=== PATIENT | female | born 1975 | race Caucasian/White ===

== ENCOUNTER 2021-02-05 07:30 | Emergency (ER) | payer MEDICAID ==
[~2021-02-05] VITALS: Ht 167.6 cm; Wt 65.8 kg
[2021-02-05 07:35] VITALS: BP 191/126
[2021-02-05] MEDS ORDERED: ONDANSETRON 4 MG/2 ML VIAL IVP ONE (07:45)
[2021-02-05] MEDS ORDERED: LORazepam 2 MG/ML VIAL IVP ONE (07:45)
[2021-02-05] MEDS ORDERED: MULTIVITAMIN 1 TAB PO ONE (07:45)
[2021-02-05] MEDS ORDERED: NACL 0.9% 1,000 ML IV SCH (07:45)
[2021-02-05] MEDS ORDERED: FOLIC ACID 1 MG TAB PO ONE (07:45)
[2021-02-05] MEDS ORDERED: HYDROcodone/APAP 5/325 MG 1 TAB TAB PO ONE (07:45)
[2021-02-05] MEDS ORDERED: THIAMINE 200 MG/2 ML VIAL IM ONE (07:45)
--- NOTE | 2021-02-05 08:02 | NUR ---
LABS WALKED TO LAB.
--- NOTE | 2021-02-05 08:27 | NUR ---
33/F biba from home with c/o 12/03 sharp RLQ, LLQ radiating to lower back pain since yesterday. Patient states "I think I have a bladder infection", reports dysuria, denies hematuria. Patient reports hx of alcohol abuse and states she was sober for 11 years but relapsed a few months ago, reporting intermittent episodes of tremors and states "I am scared I'm going to have a seizure," states her last drink was 24 hours ago. Patient reports 3 episodes of vomiting and diarrhea since this morning. Patient denies any fever/chills, denies chest pain, sob.
[2021-02-05 09:20] LABS: BASOPHILS # (AUTO) 0.1 K/uL (0.00-0.22); BASOPHILS % (AUTO) 1.3 % (0.0-2.0); EOSINOPHILS # (AUTO) 0.1 K/uL (0-0.4); EOSINOPHILS % (AUTO) 0.8 % (0.0-4.0); HEMATOCRIT 32.2 % (36-48); HEMOGLOBIN 10.1 g/dL (12.0-16.0); LYMPHOCYTES # (AUTO) 2.6 K/uL (2.5-16.5); LYMPHOCYTES % (AUTO) 30.9 % (20.5-51.1); MEAN CORPUSCULAR HEMOGLOBIN 24 pg (27-31); MEAN CORPUSCULAR HGB CONC 31 g/dL (33-37); MEAN CORPUSCULAR VOLUME 77.2 fL (80-94); MONOCYTES # (AUTO) 0.6 K/uL (0.8-1.0); MONOCYTES % (AUTO) 6.8 % (1.7-9.3); NEUTROPHILS % (AUTO) 60.2 % (42.2-75.2); PLATELET COUNT (AUTO) 292 K/uL (140-450); RED BLOOD CELL COUNT(AUTO) 4.17 MIL/uL (4.20-5.40); WHITE BLOOD COUNT (AUTO) 8.3 K/uL (4.8-10.8)
[2021-02-05 09:27] LABS: ALBUMIN 2.9 g/dL (3.4-5.0); ANION GAP 10.1 (8-16); CARBON DIOXIDE 28.2 mmol/L (21-32); CREATININE 0.9 mg/dL (0.6-1.3); MAGNESIUM 1.8 mg/dL (1.8-2.4); PHOSPHORUS 2.8 mg/dL (2.5-4.9); POTASSIUM 3.3 mmol/L (3.5-5.1); TOTAL BILIRUBIN 0.6 mg/dL (0.0-1.0)
--- NOTE | 2021-02-05 10:00 | NUR ---
PATIENT RESTING WITH EYES CLOSED, RESPIRATIONS EVEN AND UNLABORED. ON BEDSIDE STONE FINISHER. WILL CONTINUE TO MONITOR.
--- NOTE | 2021-02-05 12:15 | NUR ---
Patient ambulated with steady to the restroom to provide urine sample.
--- NOTE | 2021-02-05 13:00 | NUR ---
PATIENT RESTING WITH EYES CLOSED, RESPIRATIONS EVEN AND UNLABORED. ON BEDSIDE CRAYON SORTING MACHINE FEEDER. WILL CONTINUE TO MONITOR.
[2021-02-05 13:50] LABS: BILIRUBIN,URINE NEGATIVE (NEGATIVE); BLOOD, URINE NEGATIVE (NEGATIVE); COLOR,URINE YELLOW (YELLOW); LEUKOCYTE ESTERASE ,URINE 3+ (NEGATIVE); NITRITE, URINE NEGATIVE (NEGATIVE); PH,URINE 6.5 (5.0-9.0); UGLUCOSE NEGATIVE (NEGATIVE)
[2021-02-05 13:52] LABS: APPEARANCE,URINE HAZY (CLEAR)
[2021-02-05 14:00] LABS: RBC,URINE NONE SEEN /HPF (0-5)
[2021-02-05 14:01] LABS: URINE AMORPHOUS URATE 1+ /HPF (None Seen)
[2021-02-05] MEDS ORDERED: chlordiazePOXIDE 25 MG CAP PO ONE (14:15)
[2021-02-05] MEDS ORDERED: ONDA-24 PO (15:12)
[2021-02-05] MEDS ORDERED: CIPR500T4 PO (15:12)
[2021-02-05] MEDS ORDERED: METR500T1 PO (15:12)
[2021-02-05] MEDS ORDERED: LIB25 PO (15:12)
[2021-02-05 15:29] VITALS: BP 159/101
--- NOTE | 2021-02-05 15:29 | NUR ---
Patient discharged with v/s stable. Written and verbal after care instructions given and explained. Patient alert, oriented and verbalized understanding of instructions. Ambulatory with steady gait. All questions addressed prior to discharge. ID band removed. Patient advised to follow up with PMD. Rx of Cipro, Librium, Flagyl and Zofran given. Patient educated on indication of medication including possible reaction and side effects. Opportunity to ask questions provided and answered. Patient offered food and bus pass upon d/c.
== END 2021-02-05 15:29 | disposition home or self-care (01) ==
LOC: MED 07:30
DX: F10.10 Alcohol abuse, uncomplicated (principal); K52.9 Noninfective gastroenteritis and colitis, unspecified; N39.0 Urinary tract infection, site not specified; I12.9 Hypertensive chronic kidney disease with stage 1 through stage 4 chronic kidney disease, or unspecified chronic kidney disease; N18.9 Chronic kidney disease, unspecified
CPT/HCPCS: 36415; 70450; 74176; 80053; 81001; 81025; 83690; 83735; 84100; 84703; 85025; 87086; 96361; 96372; 96374; 96375; 99285; J2405; J3411; J7030; J2060

== ENCOUNTER 2022-12-28 21:40 | Inpatient (IN) | payer MEDICAID ==
[~2022-12-28] VITALS: Ht 167.6 cm; Wt 68.0 kg
[2022-12-28 21:40] VITALS: BP 161/90; PULSE 101; RESP 18; TEMP 98; O2SAT 97
[~2022-12-28 21:40] MED LIST: ACET-10509 PO; ACET-5629 PO; AMLO10TA PO; CIPR500T4 PO; FLUO40CA6 PO; IBUP-2213 PO; LIB25 PO; LISI40TA12 PO; METR500T1 PO; ONDA-188 PO
--- NOTE | 2022-12-28 21:47 | NUR ---
Alberto dixon in [facility] - 12/28/22 at 2149 by SAL PT BIBA ER BED 2
--- NOTE | 2022-12-28 21:49 | NUR ---
PT LEANNE MATHEWS, OFFLOADED TO ER LOBBY VIA EMS
--- NOTE | 2022-12-28 22:15 | NUR ---
PT BIB WC TO BED 11, CALL LIGHT W/IN REACH.
--- NOTE | 2022-12-28 22:20 | NUR ---
RECEIVED IN BED 11 AFTER BEING BIBA FROM STREETS WITH C/O ABDOMINAL PAIN. PT WITH H/O ETOH
[2022-12-28] MEDS ORDERED: ONDANSETRON 4 MG/2 ML VIAL IVP ONE (22:45)
[2022-12-28] MEDS ORDERED: MORPHINE SULFATE 4 MG/ML SYR IVP ONE (22:45)
[2022-12-28] MEDS ORDERED: NACL 0.9% 1,000 ML IV ONE (22:45)
--- NOTE | 2022-12-28 23:10 | NUR ---
PT WITH POOR VENOUS ACCESS, LABS WERE DRAWN
--- NOTE | 2022-12-28 23:15 | NUR ---
AMBULATED TO BR WITH STEADY GAIT
[2022-12-28 23:25] LABS: BASOPHILS # (AUTO) 0.1 K/uL (0.00-0.22); BASOPHILS % (AUTO) 0.5 % (0.0-2.0); EOSINOPHILS % (AUTO) 0.1 % (0.0-4.0); HEMATOCRIT 30.6 % (36-48); HEMOGLOBIN 9.9 g/dL (12.0-16.0); LYMPHOCYTES # (AUTO) 1.2 K/uL (2.5-16.5); LYMPHOCYTES % (AUTO) 6.3 % (20.5-51.1); MEAN CORPUSCULAR HEMOGLOBIN 28 pg (27-31); MEAN CORPUSCULAR HGB CONC 32 g/dL (33-37); MEAN CORPUSCULAR VOLUME 86.6 fL (80-94); MONOCYTES # (AUTO) 1.1 K/uL (0.8-1.0); MONOCYTES % (AUTO) 5.4 % (1.7-9.3); NEUTROPHILS # (AUTO) 17.2 K/uL (1.8-7.7); PLATELET COUNT (AUTO) 217 K/uL (140-450); RED BLOOD CELL COUNT(AUTO) 3.53 MIL/uL (4.20-5.40); RED CELL DISTRIBUTION WIDTH 20.7 % (11.6-13.7); WHITE BLOOD COUNT (AUTO) 19.6 K/uL (4.8-10.8)
--- NOTE | 2022-12-28 23:37 | NUR ---
AMBULATED TO BR WITH STEADTY GAIT
[2022-12-28 23:48] LABS: ALBUMIN 1.9 g/dL (3.4-5.0); ANION GAP 13.3 (8-16); CARBON DIOXIDE 22.6 mmol/L (21-32); CREATININE 1.1 mg/dL (0.6-1.3); MAGNESIUM 1.8 mg/dL (1.8-2.4); PHOSPHORUS 2.4 mg/dL (2.5-4.9); TOTAL BILIRUBIN 0.7 mg/dL (0.0-1.0)
[2022-12-28 23:50] LABS: NEUTROPHILS % (AUTO) 87.7 % (42.2-75.2)
[2022-12-29] LABS: POTASSIUM 2.9 mmol/L (3.5-5.1)
[2022-12-29] MEDS ORDERED: SODIUM PHOS / POTASSIUM PHOS 1 PKT PDR PO ONE (00:05)
[2022-12-29] MEDS ORDERED: POTASSIUM CHLORIDE 10 MEQ TABER PO ONE (00:05)
--- NOTE | 2022-12-29 00:15 | NUR ---
TO CT VIA W/C
--- NOTE | 2022-12-29 00:21 | NUR ---
RETURNED FROM CT
--- NOTE | 2022-12-29 01:15 | NUR ---
AMBULATED TO BR, UA OBTAINED AND SENT TO LAB
[2022-12-29 01:50] LABS: BILIRUBIN,URINE NEGATIVE (NEGATIVE); BLOOD, URINE 3+ (NEGATIVE); COLOR,URINE YELLOW (YELLOW); LEUKOCYTE ESTERASE ,URINE 3+ (NEGATIVE); NITRITE, URINE POSITIVE (NEGATIVE); PH,URINE 6.5 (5.0-9.0); UGLUCOSE NEGATIVE (NEGATIVE)
[2022-12-29 02:22] LABS: APPEARANCE,URINE HAZY (CLEAR)
[2022-12-29 02:24] LABS: RBC,URINE 0-5 /HPF (0-5)
[2022-12-29] MEDS ORDERED: cefTRIAXone 1,000 MG VIAL ONE (02:57)
--- NOTE | 2022-12-29 04:16 | NUR ---
AMBULATED TO BR WITH STEADY GAIT
--- NOTE | 2022-12-29 05:08 | NUR ---
AWAKE, DRINKING WATER, TOLERATING WELL
--- NOTE | 2022-12-29 05:09 | NUR ---
AWAKE AMBULATED TO BR
[2022-12-29] MEDS ORDERED: CEPH-588 PO (05:43)
[2022-12-29] MEDS ORDERED: ONDA-188 SL (05:43)
--- NOTE | 2022-12-29 07:25 | NUR ---
REPORT RECEIVED FROM FIDELINA CARLISLE. ASSUMED CARE AT THIS TIME
--- NOTE | 2022-12-29 07:35 | NUR ---
pt at rest w/ eyes closed. respirations even and unlabored. bed at lowest position, bed rails upx2. call light within reach
[2022-12-29 07:45] VITALS: O2SAT 97
[2022-12-29] MEDS ORDERED: NACL 0.9% 1,000 ML IV ONE ×2 (08:40→08:45)
[2022-12-29] MEDS ORDERED: LISI40TA8 PO (08:42)
--- NOTE | 2022-12-29 10:16 | NUR ---
pt w/ new pain onset. ERMD MADE AWARE
[2022-12-29] MEDS ORDERED: MORPHINE SULFATE 4 MG/ML SYR IVP ONE (10:25)
[2022-12-29] MEDS: NACL 0.9% 1,000 ML IV SCH ×2 (11:12→18:54)
[2022-12-29] MEDS ORDERED: KCL 20 MEQ IN 100 mL PREMIX 200 ML IV SCH (11:15)
--- NOTE | 2022-12-29 11:17 | NUR ---
Patient will be admitted to care of MD ALONSO. Admited to TELE. Will go to room 112A. Belongings list completed. Report to VANI LUNA.
--- NOTE | 2022-12-29 11:45 | NUR ---
RECEIVE ENDORSEMENT REPORT FORM ER NURSE, REMBERTO, THAT 47 YR OLD HOMELESS, FEMALE PATIENT IS ADMITTING FOR SEPSIS 2/2 PYELONEPHRITIS WITH SYMPTOM OF MILD TO MODERATE ABDOMINAL PAIN W/ NAUSEA/VOMITING, DIARRHEA & BILATERAL LOWER EXTREMITIES WEAKNESS. PATIENT HAS HX OF HEP. C, L. HIP ORIF, BIPOLAR, HTN, AND ETOH ABUSE; NKA, AMBULATORY, ALERT X 3, ON TEL. MONITOR, ROOM AIR. ON REGULAR DIET. PIV WAS AT [facility] (THEN PATIENT PULL IT OUT BECAUSE POTASSIUM MAKES HER FINGER LOSE FEELING) AND NURSE START A NEW ONE AT L. FOREARM. 22G. SKIN INTACT. WILL CONTINUE TO MONITOR. Addendum: 12/29/22 at 1756 by Ashlie Soliman RN PER ER NURSE THAT PATIENT HAD 2 LITER BOLUS NS, ROCEPHIN, & 40 MEQ K-DUR GIVE IN ER IN ADDITION TO FEW DOSE MORPHINE. [facility] NURSE GIVE 40MEQ K-RIDER AFTER PATIENT ARRIVE [facility]. PATIENT'S LATEST LACTIC ACID =1.6; WILL CONTINUE TO MONITOR Addendum: 12/29/22 at 1852 by Ashlie Soliman RN PATIENT IS ABLE TO AMBULATORY WITH STEADY GAIT; USING BOTH BEDSIDE COMMODE AND BATHROOM. PATIENT IS CURRENT SMOKER, ETOH HEAVY USER, AND USING RECREATIONAL DRUG OCCASIONALLY, PER PATIENT SELF REPORT SHE "NEEDS HELP." WILL CONTINUE TO MONITOR
[2022-12-29 12:00] VITALS: BP 169/108; PULSE 102; PULSE 106; RESP 20; TEMP 99; O2SAT 98
[2022-12-29 15:15] LABS: BARBITURATE, URINE NEGATIVE ng/ml (NEG <=200); BENZODIAZEPINE, URINE POSITIVE ng/mL (NEG <=200); CANNABINOID, URINE NEGATIVE ng/mL (NEG <=50); COCAINE, URINE NEGATIVE ng/mL (NEG <=300); OPIATE, URINE POSITIVE ng/mL (NEG <=2000); PHENCYCLIDINE SCREEN,URINE NEGATIVE ng/mL (NEG <=25)
[2022-12-29 15:24] VITALS: RESP 18; O2SAT 98
[2022-12-29 16:00] VITALS: BP 149/95; PULSE 117; PULSE 89; RESP 18; TEMP 96.8; O2SAT 96
[2022-12-29] MEDS: LEVOFLOXACIN 750 MG/D5W PREMIX 150 ML IV SCH (18:29)
[2022-12-29] MEDS ORDERED: DOCUSATE SODIUM 100 MG GELCAP PO PRN (18:35)
[2022-12-29] MEDS ORDERED: ACETAMINOPHEN 325 MG TAB PO PRN (18:35)
[2022-12-29] MEDS ORDERED: POTASSIUM CHLORIDE 10 MEQ TABER PO PRN (18:35)
[2022-12-29] MEDS ORDERED: ONDANSETRON 4 MG/2 ML VIAL IVP PRN (18:35)
--- NOTE | 2022-12-29 19:30 | NUR ---
RECEIVED PT FROM AM NURSE FOR CONTINUITY OF CARE. PT IS STABLE
[2022-12-29 20:00] VITALS: BP 182/99; PULSE 92; PULSE 93; RESP 18; TEMP 97.9; O2SAT 97
--- NOTE | 2022-12-29 20:40 | NUR ---
NOTIFIED OF PATIENT'S BP 182/99. GAVE AN ORDER HYDRALAZINE 10 MG PO Q6HR PRN. NOTED AND CARRIED OUT
[2022-12-29] MEDS: MORPHINE SULFATE 2 MG/ML SYR IVP PRN (21:04)
[2022-12-29] MEDS: hydrALAZINE 10 MG TAB PO PRN (21:56)
[2022-12-30] VITALS: BP 156/85; PULSE 112; PULSE 97; RESP 18; TEMP 98.1; O2SAT 98
[2022-12-30] MEDS: NACL 0.9% 1,000 ML IV SCH ×3 (02:41→19:28)
[2022-12-30] MEDS: MORPHINE SULFATE 2 MG/ML SYR IVP PRN ×4 (02:57→19:51)
[2022-12-30 04:00] VITALS: BP 150/98; PULSE 121; PULSE 95; RESP 18; TEMP 97.6; O2SAT 98
[2022-12-30 06:22] LABS: BASOPHILS % (AUTO) 0.4 % (0.0-2.0); EOSINOPHILS # (AUTO) 0.1 K/uL (0-0.4); EOSINOPHILS % (AUTO) 0.9 % (0.0-4.0); HEMATOCRIT 27.7 % (36-48); LYMPHOCYTES # (AUTO) 1.2 K/uL (2.5-16.5); LYMPHOCYTES % (AUTO) 12.3 % (20.5-51.1); MEAN CORPUSCULAR HEMOGLOBIN 29 pg (27-31); MEAN CORPUSCULAR HGB CONC 33 g/dL (33-37); MONOCYTES # (AUTO) 0.7 K/uL (0.8-1.0); MONOCYTES % (AUTO) 7.7 % (1.7-9.3); NEUTROPHILS # (AUTO) 7.5 K/uL (1.8-7.7); NEUTROPHILS % (AUTO) 78.7 % (42.2-75.2); PLATELET COUNT (AUTO) 165 K/uL (140-450); RED BLOOD CELL COUNT(AUTO) 3.14 MIL/uL (4.20-5.40); WHITE BLOOD COUNT (AUTO) 9.6 K/uL (4.8-10.8)
[2022-12-30 06:44] LABS: ANION GAP 12.6 (8-16); CARBON DIOXIDE 21.7 mmol/L (21-32); POTASSIUM 3.3 mmol/L (3.5-5.1)
--- NOTE | 2022-12-30 07:18 | NUR ---
ENDORSED PT TO AM NURSE FOR CONTINUITY OF CARE. PT IS STABLE
[2022-12-30 08:00] VITALS: BP 161/103; PULSE 87; PULSE 98; RESP 18; TEMP 98.8; O2SAT 99
[2022-12-30] MEDS: hydrALAZINE 10 MG TAB PO PRN ×4 (09:05→22:27)
--- NOTE | 2022-12-30 09:07 | NUR ---
PATIENT HAS BEEN SCREENED AND CATEGORIZED LOW NUTRITION RISK. PATIENT WILL BE SEEN WITHIN 7 DAYS OF ADMISSION. 12/29/22-01/05/[address]
[2022-12-30] MEDS: MAG SULF 2000 MG/WATER PREMIX 50 ML IV PRN (09:10)
[2022-12-30 12:00] VITALS: BP 175/107; PULSE 77; PULSE 88; RESP 18; TEMP 98.6; O2SAT 98
[2022-12-30 16:00] VITALS: BP 163/108; PULSE 88; PULSE 92; RESP 18; TEMP 98.4; O2SAT 98
[2022-12-30] MEDS: LEVOFLOXACIN 750 MG/D5W PREMIX 150 ML IV SCH (17:45)
--- NOTE | 2022-12-30 19:30 | NUR ---
RECEIVED PT FROM AM NURSE FOR CONTINUITY OF CARE. PT IS STABLE
[2022-12-30 20:00] VITALS: BP 170/100; PULSE 78; PULSE 86; RESP 18; TEMP 97.7; O2SAT 96
[2022-12-31] VITALS: PULSE 95
--- NOTE | 2022-12-31 02:00 | NUR ---
PATIENT ASLEEP, NO DISTRESS NOTED
[2022-12-31] MEDS: NACL 0.9% 1,000 ML IV SCH ×2 (02:57→10:47)
[2022-12-31] MEDS: MORPHINE SULFATE 2 MG/ML SYR IVP PRN (03:52)
[2022-12-31 04:00] VITALS: BP 164/90; PULSE 80; PULSE 85; RESP 18; TEMP 97.6; O2SAT 97
[2022-12-31] MEDS: hydrALAZINE 10 MG TAB PO PRN (05:01)
[2022-12-31 06:31] LABS: ANION GAP 9.3 (8-16); CARBON DIOXIDE 24.2 mmol/L (21-32); POTASSIUM 3.5 mmol/L (3.5-5.1)
[2022-12-31 06:35] LABS: BASOPHILS # (AUTO) 0.1 K/uL (0.00-0.22); EOSINOPHILS # (AUTO) 0.1 K/uL (0-0.4); EOSINOPHILS % (AUTO) 1.3 % (0.0-4.0); HEMATOCRIT 29.7 % (36-48); HEMOGLOBIN 9.5 g/dL (12.0-16.0); LYMPHOCYTES # (AUTO) 1.2 K/uL (2.5-16.5); MEAN CORPUSCULAR HEMOGLOBIN 28 pg (27-31); MEAN CORPUSCULAR HGB CONC 32 g/dL (33-37); MEAN CORPUSCULAR VOLUME 88.5 fL (80-94); MONOCYTES # (AUTO) 0.7 K/uL (0.8-1.0); NEUTROPHILS # (AUTO) 6.1 K/uL (1.8-7.7); NEUTROPHILS % (AUTO) 74.7 % (42.2-75.2); PLATELET COUNT (AUTO) 183 K/uL (140-450); RED BLOOD CELL COUNT(AUTO) 3.35 MIL/uL (4.20-5.40); WHITE BLOOD COUNT (AUTO) 8.2 K/uL (4.8-10.8)
[2022-12-31] MEDS: MAG SULF 2000 MG/WATER PREMIX 50 ML IV PRN (06:54)
--- NOTE | 2022-12-31 07:18 | NUR ---
ENDORSED PT TO AM NURSE FOR CONTINUITY OF CARE. PT IS STABLE
[2022-12-31 08:00] VITALS: BP 153/103; PULSE 71; PULSE 72; RESP 17; TEMP 98; O2SAT 97
[2022-12-31] MEDS ORDERED: FLUoxetine 20 MG CAP PO SCH (09:00)
[2022-12-31] MEDS ORDERED: lisinopriL 20 MG TAB PO SCH (09:00)
[2022-12-31] MEDS: METOPROLOL 25 MG TAB PO SCH ×2 (09:38→13:27)
[2022-12-31] MEDS ORDERED: METO25TA PO (10:56)
[2022-12-31] MEDS ORDERED: LEVO750T75 PO (10:57)
[2022-12-31 11:10] VITALS: BP 153/103; PULSE 72; RESP 17; TEMP 98
[2022-12-31 12:50] VITALS: BP 143/92; PULSE 66; RESP 17; TEMP 98.1; O2SAT 99
--- NOTE | 2022-12-31 13:34 | NUR ---
DISCHARGE PATIENT IN STABLE CONDITION PER PCP ORDER AFTER DISCHARGE INSTRUCTION GIVE, DISCHARGE CONSENT SIGN, IV ACCESS, TEL. MONITOR, & WRIST BAND REMOVED. PATIENT WENT HOME VIS UBER SERVICE PER PATIENT PREFERENCE.
--- NOTE | 2022-12-31 13:36 | NUR ---
HOOF TRIMMER introduced self to homeless pt. who was preparing for her discharge. During the Discharge Planning Assessment, pt. was not interested in all the questions stating she was getting discharged, but welcomed resources such as a change of clothing, gave an address for an Uber ride to the welfare office on [address] When HOOF TRIMMER attempted to provide pt. with resources for homelessness, counseling, clothing, and food hwang, pt declined stating she has packets of the same thing. When asked, pt. stated there was no friends or family that could assist pt with her homeless status. HOOF TRIMMER called security for clothing, shared with the Alvin Dailey the address for the Uber and requested a sack lunch.
== END 2022-12-31 13:30 | disposition home or self-care (01) | DRG 720 ==
LOC: MED 21:40 → MTU 12-29 11:02
PROVIDERS: ADMIT Family Medicine; ATTEND Family Medicine
DX: A41.9 Sepsis, unspecified organism (principal); E43 Unspecified severe protein-calorie malnutrition; N10 Acute pyelonephritis; B19.20 Unspecified viral hepatitis C without hepatic coma; E83.42 Hypomagnesemia; F31.9 Bipolar disorder, unspecified; K52.9 Noninfective gastroenteritis and colitis, unspecified; E87.6 Hypokalemia; I10 Essential (primary) hypertension; D64.9 Anemia, unspecified; Z59.00 Homelessness unspecified; Z68.24 Body mass index [BMI] 24.0-24.9, adult
CPT/HCPCS: 36415; 80048; 80053; 80305; 81001; 82550; 83036; 83605; 83690; 83735; 84100; 85025; 87040; 87081; 87086; J0696; J1956; J2270; J2405; J3475; J3480; J7030; J7060